=== PATIENT | male | born 1980 | race Caucasian/White ===

== ENCOUNTER 2024-03-26 17:38 | Inpatient (IN) | payer BC ==
[~2024-03-26] VITALS: Ht 167.6 cm; Wt 79.4 kg
[2024-03-26 17:49] VITALS: BP_SYST 128; PULSE 123; RESP 18; TEMP 98.3; O2SAT 92
[2024-03-26 18:53] LABS: ALANINE AMINOTRANSFERASE 63 U/L (12-78); ALBUMIN 3.8 g/dL (3.4-4.8); ANION GAP 11 (5-15); ASPARTATE AMINOTRANSFERASE 38 U/L (10-37); CALCIUM 8.9 mg/dL (8.4-11.0); CARBON DIOXIDE 27 mmol/L (23-29); CHLORIDE 102 mmol/L (98-107); CREATININE 1.16 mg/dL (0.55-1.30); GFR AFRICAN AMERICAN 89 mL/min (>90); GLUCOSE 151 mg/dL (74-106); POTASSIUM 3.2 mmol/L (3.5-5.1); SODIUM SERUM 140 mmol/L (136-145); TOTAL BILIRUBIN 0.5 mg/dL (0.0-1.0); TOTAL PROTEIN, SERUM 7.9 g/dL (6.4-8.3); UREA NITROGEN, BLOOD 18 mg/dL (8-21)
[2024-03-26 18:54] LABS: GFR NON AFRICAN-AMERICAN 73 mL/min (>90)
[2024-03-26 18:58] LABS: BASOPHILS # (AUTO) 0.1 K/uL (0.0-0.2); BASOPHILS % (AUTO) 0.6 % (0.0-2.0); EOSINOPHILS # (AUTO) 0.6 K/uL (0.0-0.4); EOSINOPHILS % (AUTO) 4.9 % (0.0-4.0); HEMATOCRIT 46.7 % (36-54); HEMOGLOBIN 16.4 g/dL (14.0-18.0); LYMPHOCYTES # (AUTO) 2.2 K/uL (1.0-5.5); LYMPHOCYTES % (AUTO) 18.7 % (20.5-51.5); MEAN CORPUSCULAR HEMOGLOBIN 30 pg (27-31); MEAN CORPUSCULAR HGB CONC 35 % (32-36); MEAN CORPUSCULAR VOLUME 87 fL (79.0-98.0); MONOCYTES # (AUTO) 0.7 K/uL (0.0-1.0); MONOCYTES % (AUTO) 5.6 % (1.7-9.3); NEUTROPHILS # (AUTO) 8.4 K/uL (1.8-7.7); NEUTROPHILS % (AUTO) 70.2 % (40.0-70.0); PLATELET COUNT (AUTO) 310 K/uL (130-430)
[2024-03-26 19:04] LABS: BLOOD GAS HCO3 22.5 mmol/L (21.0-27.0); BLOOD GAS PCO2 31.5 mmHg (32.0-45.0); BLOOD GAS PH 7.472 (7.350-7.450); BLOOD GAS PO2 64.9 mmHg (75.0-100.0)
[2024-03-26 19:05] LABS: ABG O2 SAT% ESTIMATE 94.2 % (94.0-100.0); ALLEN'S TEST POSITIVE (P)
[2024-03-26 19:10] LABS: PROTHROMBIN TIME 10.5 SECS (9.5-12.5)
[2024-03-26 20:12] LABS: INFLUENZA TYPE A Negative (NEGATIVE); INFLUENZA TYPE B NEGATIVE (NEGATIVE)
[2024-03-26 21:19] LABS: BILIRUBIN,URINE NEGATIVE (NEGATIVE); BLOOD, URINE NEGATIVE (NEGATIVE); CLARITY/URINE CLEAR (CLEAR); COLOR,URINE YELLOW (YELLOW); GLUCOSE,URINE NEGATIVE (NEGATIVE); KETONES,URINE NEGATIVE (NEGATIVE); LEUKOCYTE ESTERASE ,URINE NEGATIVE (NEGATIVE); NITRITE, URINE NEGATIVE (NEGATIVE); PH,URINE 6.5 (5.0-8.0); PROTEIN URINE NEGATIVE (NEGATIVE); UROBILINOGEN,URINE 0.2 (0.2-1.0)
[2024-03-26] MEDS: NACL 0.9% 2,000 ML IV ONE (21:55)
[2024-03-26] MEDS: methylPREDNISolone SOD SUCC/PF 62.5 MG/ML VIAL IVP ONE (21:55)
[2024-03-26] MEDS ORDERED: LOSA1TAB40 PO (22:14)
[2024-03-27] VITALS (7 sets, daily range): BP systolic 110–123; PULSE 87–95; RESP 16–18; TEMP 97.6–98.4; O2SAT 93–95
[2024-03-27] MEDS: ALBUTEROL SULFATE 0.083% 2.5 MG/3 ML VIAL.NEB INH ONE (05:54)
[2024-03-27] MEDS: IPRATROPIUM BROM 0.5 MG/2.5 ML VIAL.NEB (ATROVENT) INH ONE (05:55)
[2024-03-27] MEDS ORDERED: HYDROcodone/ACETAMIN 5-325 MG TAB (NORCO/ VICODIN) PO PRN (11:30)
[2024-03-27] MEDS ORDERED: NALOXONE HCL 0.4 MG/ML AMP (NARCAN) IVP PRN ×2 (11:30)
[2024-03-27] MEDS ORDERED: LOSARTAN PO SCH (11:30)
[2024-03-27] MEDS ORDERED: HYDROcodone/ACETAMIN 10-325 MG TAB PO PRN (11:30)
[2024-03-27] MEDS ORDERED: HCTZ PO SCH (11:30)
[2024-03-27] MEDS ORDERED: ONDANSETRON HCL 4 MG/2 ML VIAL IVP PRN (11:30)
[2024-03-27] MEDS ORDERED: LORazepam 2 MG/ML VIAL IVP PRN (11:30)
[2024-03-27 13:27] LABS: BASOPHILS % (AUTO) 0.1 % (0.0-2.0); HEMATOCRIT 43.1 % (36-54); HEMOGLOBIN 14.8 g/dL (14.0-18.0); LYMPHOCYTES # (AUTO) 1.1 K/uL (1.0-5.5); LYMPHOCYTES % (AUTO) 6.8 % (20.5-51.5); MEAN CORPUSCULAR HEMOGLOBIN 30 pg (27-31); MEAN CORPUSCULAR HGB CONC 34 % (32-36); MEAN CORPUSCULAR VOLUME 88 fL (79.0-98.0); MONOCYTES # (AUTO) 0.3 K/uL (0.0-1.0); MONOCYTES % (AUTO) 2.1 % (1.7-9.3); PLATELET COUNT (AUTO) 300 K/uL (130-430); RED BLOOD CELL COUNT(AUTO) 4.92 MIL/uL (4.2-6.2); RED CELL DISTRIBUTION WIDTH 12.9 % (9.0-15.0); WHITE BLOOD COUNT (AUTO) 15.4 K/uL (4.8-10.8)
[2024-03-27 13:42] LABS: ALBUMIN 3.4 g/dL (3.4-4.8); CALCIUM 8.6 mg/dL (8.4-11.0); CREATININE 1.1 mg/dL (0.55-1.30); POTASSIUM 3.3 mmol/L (3.5-5.1); TOTAL BILIRUBIN 0.6 mg/dL (0.0-1.0); TOTAL PROTEIN, SERUM 7.5 g/dL (6.4-8.3)
[2024-03-27] MEDS: cefTRIAXone 1 GM IVPB PREMIX 50 ML IV SCH (13:55)
[2024-03-27] MEDS: ACETAMINOPHEN 325 MG TABLET PO PRN (13:56)
[2024-03-27] MEDS: LOSARTAN POTASSIUM 50 MG TABLET (COZAAR) PO ONE (13:56)
[2024-03-27] MEDS: HYDROCHLOROTHIAZIDE 25 MG TABLET (HCTZ) PO ONE (13:57)
[2024-03-27] MEDS: NORMAL SALINE 5 ML DISP.SYRIN IVF SCH (14:15)
[2024-03-27] MEDS: POTASSIUM CHLORIDE 40 MEQ, LIDOCAINE JECT 2% PF 100 MG 75 MG in NS 250 ML IV ONE (15:15)
[2024-03-27] MEDS: IPRATROPIUM BROM 0.5 MG/2.5 ML VIAL.NEB (ATROVENT) INH SCH (20:19)
[2024-03-27] MEDS: ALBUTEROL SULFATE 0.083% 2.5 MG/3 ML VIAL.NEB INH SCH (20:19)
[2024-03-27] MEDS: BUDESONIDE 0.5 MG/2 ML AMPUL.NEB INH SCH (20:36)
[2024-03-28] VITALS (10 sets, daily range): BP systolic 109–144; PULSE 86–110; RESP 16–22; TEMP 97.8–99.8; O2SAT 92–98
[2024-03-28 07:34] LABS: BASOPHILS % (AUTO) 0.3 % (0.0-2.0); EOSINOPHILS # (AUTO) 0.1 K/uL (0.0-0.4); EOSINOPHILS % (AUTO) 0.9 % (0.0-4.0); HEMATOCRIT 40.2 % (36-54); HEMOGLOBIN 13.8 g/dL (14.0-18.0); LYMPHOCYTES # (AUTO) 2.2 K/uL (1.0-5.5); LYMPHOCYTES % (AUTO) 16.1 % (20.5-51.5); MEAN CORPUSCULAR HEMOGLOBIN 30 pg (27-31); MEAN CORPUSCULAR HGB CONC 34 % (32-36); MEAN CORPUSCULAR VOLUME 89 fL (79.0-98.0); MONOCYTES % (AUTO) 7.3 % (1.7-9.3); NEUTROPHILS # (AUTO) 10.3 K/uL (1.8-7.7); NEUTROPHILS % (AUTO) 75.4 % (40.0-70.0); PLATELET COUNT (AUTO) 274 K/uL (130-430); RED BLOOD CELL COUNT(AUTO) 4.55 MIL/uL (4.2-6.2); RED CELL DISTRIBUTION WIDTH 13.2 % (9.0-15.0); WHITE BLOOD COUNT (AUTO) 13.7 K/uL (4.8-10.8)
[2024-03-28 08:08] LABS: CALCIUM 8.7 mg/dL (8.4-11.0); CREATININE 1.05 mg/dL (0.55-1.30); POTASSIUM 3.6 mmol/L (3.5-5.1)
[2024-03-28] MEDS: LOSARTAN POTASSIUM 50 MG TABLET (COZAAR) PO SCH (09:55)
[2024-03-28] MEDS: HYDROCHLOROTHIAZIDE 25 MG TABLET (HCTZ) PO SCH (09:55)
[2024-03-28] MEDS: METHYLPREDNISOLONE SOD SUCC 40 MG/ML VIAL IVP SCH (16:29)
[2024-03-28] MEDS: FLUCONAZOLE 200 mg/ NS 100 ML IV SCH (20:04)
[2024-03-28] MEDS: DOXYCYCLINE HYCLATE 100 MG in D5W 100 ML IV SCH (21:42)
[2024-03-29] VITALS (8 sets, daily range): BP systolic 108–127; PULSE 98–105; RESP 18–20; TEMP 98–98.4; O2SAT 89–98
[2024-03-29 07:14] LABS: HEMATOCRIT 42.4 % (36-54); HEMOGLOBIN 14.5 g/dL (14.0-18.0); LYMPHOCYTES # (AUTO) 0.9 K/uL (1.0-5.5); LYMPHOCYTES % (AUTO) 7.6 % (20.5-51.5); MEAN CORPUSCULAR HEMOGLOBIN 30 pg (27-31); MEAN CORPUSCULAR HGB CONC 34 % (32-36); MEAN CORPUSCULAR VOLUME 88 fL (79.0-98.0); MONOCYTES # (AUTO) 0.2 K/uL (0.0-1.0); MONOCYTES % (AUTO) 1.4 % (1.7-9.3); NEUTROPHILS # (AUTO) 10.7 K/uL (1.8-7.7); PLATELET COUNT (AUTO) 291 K/uL (130-430); RED BLOOD CELL COUNT(AUTO) 4.82 MIL/uL (4.2-6.2); WHITE BLOOD COUNT (AUTO) 11.8 K/uL (4.8-10.8)
[2024-03-29 07:52] LABS: ALBUMIN 3.2 g/dL (3.4-4.8); CREATININE 1.05 mg/dL (0.55-1.30); TOTAL BILIRUBIN 0.4 mg/dL (0.0-1.0); TOTAL PROTEIN, SERUM 7.3 g/dL (6.4-8.3)
[2024-03-29 08:01] LABS: ERYTHROCYTE SEDIMENTATION RATE 11 MM/HR (0-15)
[2024-03-29] MEDS ORDERED: FLUC200T PO (11:01)
[2024-03-29] MEDS ORDERED: METH-776 PO (11:01)
[2024-03-29] MEDS ORDERED: DOXY100T2 PO (11:01)
[2024-04-01 08:06] LABS: COCCIDIOIDES AB IGG 0.5 IV (<=0.9); COCCIDIOIDES AB IGM 0.3 IV (<=0.9)
[2024-04-01 21:06] LABS: MYCOPLASMA PNEUMONIAE IgM <770 U/mL (0-769)
== END 2024-03-29 18:20 | disposition home or self-care (01) | DRG 189 ==
LOC: EDBD 17:38 → SED 17:38 → STU 21:58
PROVIDERS: ADMIT Preventive Medicine Preventive Medicine/Occupational Environmental Medicine; ATTEND Preventive Medicine Preventive Medicine/Occupational Environmental Medicine
DX: J96.01 Acute respiratory failure with hypoxia (principal); J20.9 Acute bronchitis, unspecified; Z20.822 Contact with and (suspected) exposure to COVID-19; I10 Essential (primary) hypertension; E88.09 Other disorders of plasma-protein metabolism, not elsewhere classified; D64.9 Anemia, unspecified; E87.6 Hypokalemia; Z82.49 Family history of ischemic heart disease and other diseases of the circulatory system
CPT/HCPCS: 36415; 36600; 71045; 71275; 80048; 80053; 81001; 81003; 82803; 83605; 83880; 84443; 84484; 85025; 85379; 85610; 85651; 85730; 86480; 86635; 86738; 87040; 87081; 87086; 93005; 93306; 94640; 94760; 99291; G0378; J0696; J1030; J1450; J2930; J3480; J3490; J7050; J7060; J7626